=== PATIENT | male | born 1975 | race Caucasian/White ===

== ENCOUNTER → 2019-02-08 14:09 | Outpatient (CLI) | payer OTHER, SELFPAY ==
--- NOTE | 2019-02-08 14:16 | XR_ITS ---
XR tibia fibula LT 2V Ordering Physician: Guillermo Ackerman Patient Age: 43 years: Male HISTORY: ITS.REASON: pain in calf Injury the tibia-fibula yesterday. Pain posterior TECHNIQUE: AP and lateral lower leg COMPARISON :Left knee 2011 FINDINGS The tibia and fibula are intact with no fracture evident. The bones are well mineralized normal density. . There appears to be some focal soft tissue swelling, focally at the medial posterior calf with bulges medially on frontal projection.. Is This site of injury, pain or evident hematoma? IMPRESSION: Tibia and fibula are intact no fracture Focal soft tissue swelling at the posterior medial aspect of the calf. Reflecting recent injury with possible focal hematoma here.. Clinical correlation required
== END ==
PROVIDERS: PCP Emergency Medicine; Visit Provider Nurse Practitioner Family
DX: M79.662 Pain in left lower leg (principal)
CPT/HCPCS: 73590

== ENCOUNTER 2019-02-15 09:00 | Outpatient (RCR) | payer OTHER, SELFPAY ==
--- NOTE | 2019-02-13 09:05 | HMH.PTOPEV ---
PT Outpatient Evaluation Rehab PT Outpatient Evaluation Start: 02/13/19 08:13 Freq: Status: Active Protocol: Document 02/13/19 08:47 PHOSHAW (Rec: 02/13/19 09:02 PHORNE [email or web address]) Electronically Signed By Abner Aburto, PT 02/13/19 08:47 Outpatient Therapy Subjective History Subjective History Pt is a 43 yowm with complaints of L calf pain after attempting to climb a wall at a trampoline park 1 week ago. The next day, pt visited Dr. Baxter who refered to PT. Pt presents with bruising and swelling around the posterior middle calf. Pt reports 4/10 pain with PF at this moment, 3/10 at best, and 10/10 at worst. Pt reports avoiding any type of PF to decrease pain. Pt denies numbness and tingling into the LLE. Pt states pain is sharp and is in the mid calf. Pt states having asthma and no other comorbidities. Pt 's past surgeries include L knee surgery. Chief Complaint Pain Swelling Symptom Type Sharp Symptoms Relieved By Ice Symptoms Aggravated By Physical Activity Walking Prior Functional Limitations None Current Functional Limitations Walking Stairs Balance Symptom Description Constant but Variable Level of pain today (0-10) 4 Pain scale - at its best (0-10) 3 Pain scale - at its worst (0-10) 10 Hip/Knee Eval MMT left Hip Strength Reason Not Measured WFL Knee Extension Strength Grade 5 Normal Knee Flexion Strength Grade 4 Good Sensation bilateral LE Dermatome Level L3 L4 L5 S1 Comment Normal sensation Ankle/Foot Eval Gait Observation General Gait Pattern Observation Antalgic Gait Decrease Weight Bear (L) Assistive Device Ambulation Assistive Device None Palpation Tenderness left Ankle/Foot Palpation Findings Tenderness Ankle/Foot Palpation Overall Comment L posterior medial calf ROM right Ankle/Foot Dorsiflexion w/Knee Flexed 29 Active Range of Motion (degrees) Ankle/
== END 2019-02-15 09:05 | disposition home or self-care (01) ==
LOC: PT 09:00
PROVIDERS: Visit Provider Orthopaedic Surgery
DX: S86.112A Strain of other muscle(s) and tendon(s) of posterior muscle group at lower leg level, left leg, initial encounter (principal)
CPT/HCPCS: 97010; 97110; 97163

== ENCOUNTER 2019-10-17 16:27 | Observation (INO) ==
--- NOTE | 2019-10-17 17:20 | History & Physical Report ---
*Admission Date: 10/17/19 *Chief complaint: chest pain *History of present illness: 43-year-old male presents to primary care with complaints of chest pain since last p.m. that was intermediate but since this a.m. he has had sharp stabbing left-sided chest pain. Discussed with Dr. Fuller admitted for cardiac work-up due to family history of coronary artery disease, and SD as an early age. Father had first SD with stenting done at age 46. 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, MRSA *Have you ever received a pneumonia vaccine?: No *Have you received a flu vaccine this season?: No Laterality Cases: - *Social History Smoking Status: Never smoker Alcohol Intake: never *Occupational Status:: employed Housing: house Household Members: family *Travel in the last 8 weeks: None Family Hx:: Cancer, Hypertension, Diabetes, Asthma Review of Systems - Review of Systems Review of systems:: pertinent systems reviewed and negative unless documented below - Constitutional Denies body ache(s), Denies fatigue - Eyes Denies blurry vision - ENT Denies bleeding gums, Denies nasal discharge - *Cardiovascular Reports chest pain, Reports chest pain at rest, Reports chest pain with activity, Denies leg sores - *Respiratory Denies chest congestion, Denies cough, Denies shortness of breath with activity - *Gastrointestinal Denies nausea, Denies vomiting - *Genitourinary Denies urinary frequency - *Musculoskeletal Denies decreased muscle mass - Integumentary/Breasts Denies rash - *Neurologic Denies abnormal hearing - Psychiatric Denies lack of enjoyment, Denies anxiety - Endocrine Denies flushing - Hematologic/Lymphatic Denies enlarged lymph nodes - Allergic/Immunologic Denies itchy eyes Meds Home Medications Medication Instructions Recorded Confirmed Type amoxicillin 500 mg capsule 500 mg PO Q12H 10 Days #20 cap 03/13/19 03/13/19 Rx azithromycin 250 mg tablet 250 mg PO QDAY 5 Days #6 tab 03/14/19 Rx Allergies Allergy/AdvReac Type Severity Reaction Status Date / Time From BACTRIM Allergy Unknown HANDS RED Uncoded 03/13/19 12:14 AND SWOLLEN AND RASH Exam Vital signs and Labs for Last 24 Hours: Temp Pulse Resp BP Pulse Ox 97.9 F 58 L 18 122/82 99 10/17/19 16:47 10/17/19 16:47 10/17/19 16:47 10/17/19 16:47 10/17/19 16:47 I & O for Last 24 hours: Intake & Output 10/15/19 10/16/19 10/17/19 10/18/19 11:59 11:59 11:59 11:59 Weight 158 lb 2 oz - Constitutional no acute distress - *Routine HEENT Exam Head: Present: normocephalic Eye: Present: PERRL ENT: Present: mucous membranes moist - *Routine Neck Exam Present: supple, full ROM. Absent: lymphadenopathy - *Routine Respiratory Exam Present: CTA bilaterally - *Routine Cardiovascular Exam Present: RRR, bradycardia - *Routine Abdominal Exam Present: soft, normoactive bowel sounds - *Routine Extremities Exam Present: full ROM, normal capillary refill. Absent: cyanosis, clubbing, edema - *Routine Skin Exam Present: warm. Absent: rash - *Routine Neurological Exam Present: alert, oriented X3 - Routine Psychiatric Exam Present: normal affect Assessment and Plan (1) Chest pain Current visit: Yes Status: Acute Qualifiers: Chest pain type: other chest pain Qualified Code(s): R07.89 - Other chest pain; R07.8 - Other chest pain Category: Medical Code(s): R07.9 - Chest pain, unspecified - Assessment and plan all Dx Assessment and Plan for all problems:: Dr nuno seen pt all orders per nurys
[2019-10-17 17:22] LABS: Basophils % 0.5 % (0.1-2.0); Eosinophils # 0.4 K/mm3 (0.0-0.4); Eosinophils % 4.5 % (0.1-12.0); Hematocrit 42.8 % (42.0-52.0); Lymphocytes # 2.1 K/mm3 (0.7-4.5); Lymphocytes % 27.3 % (10-50); Mean Corpuscular HGB Conc 32.7 g/dL (31.8-35.4); Mean Corpuscular Volume 90.5 fl (80-94); Mean Platelet Volume 7.6 fl (7.4-10.4); Monocytes # 0.5 K/mm3 (0.1-1.0); Monocytes % 6.8 % (1.7-9.3); Neutrophils # 4.7 K/mm3 (1.8-7.8); Neutrophils % 60.9 % (37.0-80.0); Platelet Count 293 K/mm3 (142-424); Red Blood Count 4.73 M/mm3 (4.60-6.20); Red Cell Distribution Width 12.7 % (11.5-17.5); White Blood Count 7.7 K/mm3 (4.8-10.8)
[2019-10-17 17:36] LABS: Albumin/Globulin Ratio 1.1 (1.1-1.8); Anion Gap 14.9 mEq/L (5-15); Bilirubin,Total 0.7 mg/dL (0.2-1.0); Calcium 8.8 mg/dL (8.5-10.1); Globulin 3.6 gm/dl (1.3-3.2); Total Protein,Serum 7.6 gm/dL (6.4-8.2)
[2019-10-18 06:14] LABS: Basophils % 0.4 % (0.1-2.0); Eosinophils # 0.3 K/mm3 (0.0-0.4); Eosinophils % 4.6 % (0.1-12.0); Hematocrit 40.4 % (42.0-52.0); Hemoglobin 13.3 g/dL (14.1-18.0); Lymphocytes # 2.1 K/mm3 (0.7-4.5); Lymphocytes % 35.6 % (10-50); Mean Corpuscular Volume 88.8 fl (80-94); Mean Platelet Volume 8.2 fl (7.4-10.4); Monocytes # 0.4 K/mm3 (0.1-1.0); Monocytes % 6.4 % (1.7-9.3); Neutrophils # 3.1 K/mm3 (1.8-7.8); Platelet Count 262 K/mm3 (142-424); Red Blood Count 4.54 M/mm3 (4.60-6.20); Red Cell Distribution Width 12.9 % (11.5-17.5); White Blood Count 5.8 K/mm3 (4.8-10.8)
[2019-10-18 06:24] LABS: Albumin Level 3.4 gm/dL (3.4-5.0); Albumin/Globulin Ratio 1.1 (1.1-1.8); Anion Gap 11.8 mEq/L (5-15); Bilirubin,Total 0.9 mg/dL (0.2-1.0); Calcium 8.4 mg/dL (8.5-10.1); Chol/HDL Ratio 2.6 (1-3.5); Globulin 3.2 gm/dl (1.3-3.2); Total Protein,Serum 6.6 gm/dL (6.4-8.2)
--- NOTE | 2019-10-18 07:47 | Pharmacy Consult Notes ---
[facility] Pharmacy VTE Monitoring - Patient Demographics Admission date: 10/17/19 Report Date: 10/18/19 Time: 07:47 Allergies/Adverse Reactions: Patient Allergies sulfamethoxazole [From Bactrim] Allergy (Verified 10/18/19 07:47) HANDS RED AND SWOLLEN AND RASH trimethoprim [From Bactrim] Allergy (Verified 10/18/19 07:47) HANDS RED AND SWOLLEN AND RASH Height: 1.6 m Weight: 70.08 kg Patient Problems: Current Active Problems Chest pain (Acute) - VTE Risk Labs: VTE Related Lab Results Hgb 13.3 g/dL (14.1-18.0) L 10/18/19 05:29 Hct 40.4 % (42.0-52.0) L 10/18/19 05:29 Plt Count 262 K/mm3 (142-424) 10/18/19 05:29 BUN 19 mg/dL (7-18) H 10/18/19 05:29 Creatinine 0.99 mg/dL (0.70-1.30) 10/18/19 05:29 Estimated Creat Clear 95 mL/min (50-200) 10/18/19 05:29 VTE Score: 3 VTE Risk Level: Low Risk - Prophylaxis VTE Prophylaxis Ordered?: Yes Types of VTE Prophylaxis: TEDS Knee High Location of Applied Device: Bilateral Lower Extremeties - VTE Diagnosis Confirmed Treatment or plan recommended: Continue Current Treatment
--- NOTE | 2019-10-18 08:54 | Consult Report ---
History of Present Illness Consult date: 10/18/19 Requesting physician: Levon Geller Consult reason: chest pain Chief complaint: chest pain Additional Medical History:: 1. Family history of coronary artery disease 2. History of asthma History of present illness: 43-year-old white male admitted for recurrent episodes of chest pain, left-sided with radiation into the left arm. Patient stated symptoms would come with exertion or with at rest. Blood pressure and heart rate were low which prohibited beta-ramonita therapy. Due to recurrent episodes of chest pain patient did undergo cardiac catheterization last evening which revealed normal coronary arteries and normal left ventricular ejection fraction. His troponins did return to normal overnight. No acute EKG changes were noted. 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, MRSA Denies:: Diabetes Mellitus Type 1, Diabetes Mellitus Type 2 *Have you ever received a pneumonia vaccine?: No *Have you received a flu vaccine this season?: No Laterality Cases: Left: Other - *Social History Educational Level: Completed High School Smoking Status: Never smoker Alcohol Intake: never *Occupational Status:: employed Housing: house Household Members: spouse, family *Travel in the last 8 weeks: None Family Hx:: Asthma, Cancer, Diabetes, Heart Attack, Hypertension Meds Home Medications Medication Instructions Recorded Confirmed Type No Known Home Medications 10/17/19 10/17/19 History Allergies Allergy/AdvReac Type Severity Reaction Status Date / Time sulfamethoxazole Allergy HANDS RED Verified 10/18/19 07:47 [From Bactrim] AND SWOLLEN AND RASH trimethoprim [From Bactrim] Allergy HANDS RED Verified 10/18/19 07:47 AND SWOLLEN AND RASH Review of Systems - Review of Systems Review of systems:: pertinent systems reviewed and negative unless documented below - *Cardiovascular Reports chest pain - *Respiratory Denies shortness of breath - *Gastrointestinal Denies loose stools, Denies nausea, Denies vomiting - *Genitourinary Denies blood in urine - *Musculoskeletal Denies joint pain, Denies back pain - *Neurologic Denies abnormal hearing Exam Vital signs and Labs for Last 24 Hours: Temp Pulse Resp BP Pulse Ox 97.8 F 51 L 16 111/67 99 10/18/19 07:53 10/18/19 07:53 10/18/19 07:53 10/18/19 07:53 10/18/19 07:53 Laboratory Results - last 24 hr 10/17/19 17:00: WBC 7.7, RBC 4.73, Hgb 14.0 L, Hct 42.8, MCV 90.5, MCH 29.6, MCHC 32.7, RDW 12.7, Plt Count 293, MPV 7.6, Neut % (Auto) 60.9, Lymph % (Auto) 27.3, [place] % (Auto) 6.8, Eos % (Auto) 4.5, Baso % (Auto) 0.5, Neut # (Auto) 4.7, Lymph # (Auto) 2.1, [place] # (Auto) 0.5, Eos # (Auto) 0.4, Baso # (Auto) 0.0 10/17/19 17:00: Sodium 142, Potassium 3.9, Chloride 104, Carbon Dioxide 27, Anion Gap 14.9, BUN 17, Creatinine 1.03, Estimated Creat Clear 134, Estimated GFR 79, Est GFR ( Amer) 95, Glucose 91, Calcium 8.8, Total Bilirubin 0.7, AST 18, ALT 16, Alkaline Phosphatase 64, Total Protein 7.6, Albumin 4.0, Globulin 3.6 H, Albumin/Globulin Ratio 1.1 10/17/19 17:00: Troponin I < 0.02 10/17/19 20:33: Troponin I < 0.02 10/17/19 23:18: Troponin I < 0.02 10/18/19 05:29: WBC 5.8, RBC 4.54 L, Hgb 13.3 L, Hct 40.4 L, MCV 88.8, MCH 29.3, MCHC 33.0, RDW 12.9, Plt Count 262, MPV 8.2, Neut % (Auto) 53.0, Lymph % (Auto) 35.6, [place] % (Auto) 6.4, Eos % (Auto) 4.6, Baso % (Auto) 0.4, Neut # (Auto) 3.1, Lymph # (Auto) 2.1, [place] # (Auto) 0.4, Eos # (Auto) 0.3, Baso # (Auto) 0.0 10/18/19 05:29: Sodium 141, Potassium 3.8, Chloride 106, Carbon Dioxide 27, Anion Gap 11.8, BUN 19 H, Creatinine 0.99, Estimated Creat Clear 95, Estimated GFR 83, Est GFR ( Amer) 100, Glucose 88, Calcium 8.4 L, Total Bilirubin 0.9, AST 10 L D, ALT 13, Alkaline Phosphatase 50, Total Protein 6.6, Albumin 3.4 D, Globulin 3.2, Albumin/Globulin Ratio 1.1, Triglycerides 42, Cholesterol 145, LDL Cholesterol 81, VLDL Cholesterol 8, HDL Cholesterol 56, Cholesterol/HDL Ra lux 2.6 I & O for Last 24 hours: Intake & Output 10/15/19 10/16/19 10/17/19 10/18/19 11:59 11:59 11:59 11:59 Intake Total 370 / 370 Balance 370 / 370 Weight 154 lb 8 oz - *Routine HEENT Exam Head: Present: normocephalic Eye: Present: EOMI, PERRL ENT: Present: mucous membranes moist - *Routine Neck Exam Present: supple. Absent: JVD, carotid bruit - *Routine Respiratory Exam Present: CTA bilaterally. Absent: accessory muscle use, rales, rhonchi, wheezes - *Routine Cardiovascular Exam Present: RRR. Absent: murmur, gallop, rubs - *Routine Abdominal Exam Present: soft. Absent: tenderness, distended, guarding - *Routine Extremities Exam Absent: edema, calf tenderness - *Routine Neurological Exam Present: alert, oriented X3, moving all extremities Assessment and Plan (1) Chest pain Current visit: Yes Status: Acute Qualifiers: Chest pain type: other chest pain Qualified Code(s): R07.89 - Other chest pain; R07.8 - Other chest pain Category: Medical Code(s): R07.9 - Chest pain, unspecified - Assessment and plan all Dx Assessment and Plan for all problems:: 1. Normal coronary arteries by cardiac catheterization. 2. Noncardiac chest pain, work-up per Dr. Geller. 3. Okay for discharge home from cardiology standpoint.
--- NOTE | 2019-10-18 09:06 | Discharge Summary ---
General - General Admission date:: 10/17/19 Discharge date: 10/18/19 HPI HPI: 43-year-old male presents to primary care with complaints of chest pain since last p.m. that was intermediate but since this a.m. he has had sharp stabbing left-sided chest pain. Discussed with Dr. Fuller admitted for cardiac work-up due to family history of coronary artery disease, and CT as an early age. Father had first CT with stenting done at age 46. Hospital Course Hospital Course: heart cath:ANGIOGRAPHIC RESULTS The left main artery Normal The left anterior descending artery Normal The circumflex artery Normal The right coronary artery Dominant normal The KIM[place]OUGH ventriculogram reveals Normal 65% The left ventricular end-diastolic pressure 10 mmHg IMPRESSION Normal coronary arteries Normal ejection fraction Normal left ventricular end-diastolic pressure PLAN 1. Evaluation of noncardiac chest pain pt will be dc home and follow up in office in 1 week. If chest pain return will evaluate possible gi causes. Objective Vital signs: Temp Pulse Resp BP Pulse Ox 97.8 F 51 L 16 111/67 99 10/18/19 07:53 10/18/19 07:53 10/18/19 07:53 10/18/19 07:53 10/18/19 07:53 no acute distress - *Routine HEENT Exam Head: Present: normocephalic Eye: Present: PERRL ENT: Present: mucous membranes moist - *Routine Respiratory Exam Present: CTA bilaterally - *Routine Cardiovascular Exam Present: RRR - *Routine Abdominal Exam Present: soft, normoactive bowel sounds - *Routine Extremities Exam Present: full ROM - *Routine Skin Exam Present: intact - *Routine Neurological Exam Present: alert, oriented X3 - Routine Psychiatric Exam Present: normal affect Results Labs on day of discharge: Labs from last 24 hours 10/18/19 10/18/19 10/17/19 05:29 05:29 23:18 WBC 5.8 RBC 4.54 L Hgb 13.3 L Hct 40.4 L MCV 88.8 MCH 29.3 MCHC 33.0 RDW 12.9 Plt Count 262 MPV 8.2 Neut % (Auto) 53.0 Lymph % (Auto) 35.6 [place] % (Auto) 6.4 Eos % (Auto) 4.6 Baso % (Auto) 0.4 Neut # (Auto) 3.1 Lymph # (Auto) 2.1 [place] # (Auto) 0.4 Eos # (Auto) 0.3 Baso # (Auto) 0.0 Sodium 141 Potassium 3.8 Chloride 106 Carbon Dioxide 27 Anion Gap 11.8 BUN 19 H Creatinine 0.99 Estimated Creat Clear 95 Estimated GFR 83 Est GFR ( Amer) 100 Glucose 88 Calcium 8.4 L Total Bilirubin 0.9 AST 10 L D ALT 13 Alkaline Phosphatase 50 Troponin I < 0.02 Total Protein 6.6 Albumin 3.4 D Globulin 3.2 Albumin/Globulin Ratio 1.1 Triglycerides 42 Cholesterol 145 LDL Cholesterol 81 VLDL Cholesterol 8 HDL Cholesterol 56 Cholesterol/HDL Ratio 2.6 10/17/19 10/17/19 10/17/19 20:33 17:00 17:00 WBC RBC Hgb Hct MCV MCH MCHC RDW Plt Count MPV Neut % (Auto) Lymph % (Auto) [place] % (Auto) Eos % (Auto) Baso % (Auto) Neut # (Auto) Lymph # (Auto) [place] # (Auto) Eos # (Auto) Baso # (Auto) Sodium 142 Potassium 3.9 Chloride 104 Carbon Dioxide 27 Anion Gap 14.9 BUN 17 Creatinine 1.03 Estimated Creat Clear 134 Estimated GFR 79 Est GFR ( Amer) 95 Glucose 91 Calcium 8.8 Total Bilirubin 0.7 AST 18 ALT 16 Alkaline Phosphatase 64 Troponin I < 0.02 < 0.02 Total Protein 7.6 Albumin 4.0 Globulin 3.6 H Albumin/Globulin Ratio 1.1 Triglycerides Cholesterol LDL Cholesterol VLDL Cholesterol HDL Cholesterol Cholesterol/HDL Ratio 10/17/19 17:00 WBC 7.7 RBC 4.73 Hgb 14.0 L Hct 42.8 MCV 90.5 MCH 29.6 MCHC 32.7 RDW 12.7 Plt Count 293 MPV 7.6 Neut % (Auto) 60.9 Lymph % (Auto) 27.3 [place] % (Auto) 6.8 Eos % (Auto) 4.5 Baso % (Auto) 0.5 Neut # (Auto) 4.7 Lymph # (Auto) 2.1 [place] # (Auto) 0.5 Eos # (Auto) 0.4 Baso # (Auto) 0.0 Sodium Potassium Chloride Carbon Dioxide Anion Gap BUN Creatinine Estimated Creat Clear Estimated GFR Est GFR ( Amer) Glucose Calcium Total Bilirubin AST ALT Alkaline Phosphatase Troponin I Total Protein Albumin Globulin Albumin/Globulin Ratio Triglycerides Cholesterol LDL Cholesterol VLDL Cholesterol HDL Cholesterol Cholesterol/HDL Ratio - Additional Comments Rounded with nurys all orders per dr nuno DS: Diagnosis - Discharge Diagnosis (1) Chest pain Status: Acute (2) Bradycardia Status: Acute Discharge Plan - Patient Discharge Instructions ACTIVITY: Continue current activity DIET: continue same diet Patient Instructions: Cardiac Catheterization, DI for Cardiac Catheterization, DI for Chest Pain - Follow up Plan Follow up with: Guillermo Ackerman APRN [Advanced Practice Nurse] - Disposition: Home, Self-Mcc Medications: Home Medications Medication Instructions Recorded Confirmed Type No Known Home Medications 10/17/19 10/17/19 History Omeprazole Magnesium [Prilosec Otc 20 mg PO DAILY 30 Days #30 tab 10/18/19 Rx 20mg Tab] Prescriptions/Medication Reconciliation: New Omeprazole Magnesium [Prilosec Otc 20mg Tab] 20 mg PO DAILY 30 Days #30 tab No Action No Known Home Medications - Problem Reconciliation Problems Reviewed?: Yes
--- NOTE | 2019-10-18 10:26 | Electrocardiograph Report ---
APPROVED REPORT Exam: Resting ECG HR:55 bpm ECG Measurements Heart Rate 55 AXES OR 134 P 59 QRSd 92 QRS 55 QT 424 T40 QTc 405 <Conclusion> Sinus bradycardia Otherwise normal ECG Electronically signed by : Zan Hennessy, 10/18/2019 10:25:51
--- OUTSIDE RECORDS SUMMARY | 2019-10-18 14:16 | External Medical Summary | Continuity of Care Document ---
:1975 Author Organization [facility] Address [address] [facility] [address] [place] [address] Phone Care Team Providers Name Role Phone Nell Geller Primary Care Provider Nell Geller Attending Provider Tyron Attending Provider Allergies, Adverse Reactions, Alerts Allergen Type Severity Reaction Last Verified Status Updated sulfamethoxazole Allergy HANDS RED Yes Act eliud AND SWOLLEN AND RASH trimethoprim Allergy HANDS RED Yes Active AND SWOLLEN AND RASH Medications Medication Status Dose Units Route Sig Qty Days Start End Instruct ions Date Date Omeprazole Active 20 MG Oral Daily October 9:07am Problems Active Problems Medical Problem Onset Date Status Bradycardia Active Chest pain Active Procedures Procedure Date Performed Status XR chest 2V October 17, 2019 completed ECG initial Besson October 17, 2019 completed Cardiac Cath October 17, 2019 7:35pm completed Relevant Diagnostic Tests and/or Laboratory Data Laboratory Results Test Date/Time Result Interpretation Reference Result Perfo rming Range Comment Site White Blood Count Niraj 5.8 4.8-10.8 [facility], [address] [place] [address] 36 E 2018 K/mm3 [place] [address] 5:29am Red Blood Count October 4.54 4.60-6.20 [facility], [address] [place] [address] 36 E 2018 M/mm3 [place] [address] 5:29am Hemoglobin Niraj 13.3 14.1-18.0 [facility], [address] [place] [address] 36 E 2018 g/dL [place] [address] 5:29am Hematocrit Niraj 40.4 % 42.0-52.0 [facility], [address] [place] [address] 36 E 2018 [place] [address] 5:29am Mean Corpuscular Niraj 88.8 fl 80-94 [facility], [address] [place] [address] E Volume 2018 [place] [address] 5:29am Mean Corpuscular Niraj 29.3 pg 27.0-31.2 [facility], [address] [place] [address] 36 E Hemoglobin 2018 [place] [address] 5:29am Mean Corpuscular Niraj 33.0 31.8-35.4 [facility], [address] [place] [address] 36 E Hemoglobin Concent 2018 g/dL [place] [address] 5:29am Red Cell Niraj 12.9 % 11.5-17.5 [facility], [address] [place] [address] 36 E Distribution Width 2018 [place] [address] 5:29am Platelet Count October 262 142-424 [facility], [address] [place] [address] 36 E 2018 K/mm3 [place] [address] 5:29am Mean Platelet October 8.2 fl 7.4-10.4 [facility], [address] [place] [address] 36 E Volume 2018 [place] [address] 5:29am Neutrophils (%) Niraj 53.0 % 37.0-80.0 [facility], [address] [place] [address] 36 E (Auto) 2018 [place] [address] 5:29am Lymphocytes (%) October 35.6 % 10-50 [facility], [address] [place] [address] 36 E (Auto) 2018 [place] [address] 5:29am Monocytes (%) Niraj 6.4 % 1.7-9.3 [facility], [address] [place] [address] E (Auto) 2018 [place] [address] 5:29am Eosinophils (%) October 4.6 % 0.1-12.0 [facility], [address] [place] [address] 36 E (Auto) 2018 [place] [address] 5:29am Basophils (%) Niraj 0.4 % 0.1-2.0 [facility], [address] [place] [address] E (Auto) 2018 [place] [address] 5:29am Neutrophils # October 3.1 1.8-7.8 [facility], [address] [place] [address] E (Auto) 2018 K/mm3 [place] [address] 5:29am Lymphocytes # October 2.1 0.7-4.5 [facility], [address] [place] [address] E (Auto) 2018 K/mm3 [place] [address] 5:29am Monocytes # (Auto) October 0.4 0.1-1.0 [facility], [address] [place] [address] 36 E 2018 K/mm3 [place] [address] 5:29am Eosinophils # Niraj 0.3 0.0-0.4 [facility], [address] [place] [address] E (Auto) 2018 K/mm3 [place] [address] 5:29am Basophils # (Auto) Niraj 0.0 0-0.2 [facility], [address] [place] [address] E 2018 K/mm3 [place] [address] 5:29am Troponin I October < 0.02 0.00-0.06 *ALERT* High [facility], [address] [place] [address] 36 E 2018 ng/[place] [address] 11:18pm Biotin can falsely depress Troponin results.Many dietary supplements promoted for hair,skin, and nail benefits contain biotin levels up to 650 times the recommended daily intake of biotin. In additon to dietary supplements, Biotin is occasionally prescribed for medical conditions. Sodium Level October 141 136-145 [facility], [address] [place] [address] 36 E 2018 mmol/[place] [address] 5:29am Potassium Level October 3.8 3.5-5.1 [facility], [address] [place] [address] 36 E 2018 mmoL/L [place] [address] 5:29am Chloride Level October 106 98-107 [facility], [address] [place] [address] E 2018 mmol/[place] [address] 5:29am Carbon Dioxide October 27 21.0-32.0 [facility], [address] [place] [address] E Level 2018 mmol/L [place] [address] 5:29am Anion Gap October 11.8 5-15 [facility], [address] [place] [address] E 2018 mEq/L [place] [address] 5:29am Blood Urea October 19 7-18 [facility], [address] [place] [address] E Nitrogen 2018 mg/dL [place] [address] 5:29am Creatinine October 0.99 0.70-1.30 [facility], [address] [place] [address] E 2018 mg/dL [place] [address] 5:29am Estimated Niraj 95 0-300 [facility], [address] [place] [address] E Creatinine 2018 mL/[place] [address] Clearance 5:29am Estimated GFR October 100 >59 [facility], [address] [place] [address] E () 2018 ML/[place] [address] 5:29am Estimat Glomerular October 83 >59 [facility], [address] [place] [address] E Filtration Rate 2018 ml/[place] [address] 5:29am Glucose Level October 88 74-106 [facility], [address] [place] [address] E 2018 mg/[place] [address] 5:29am Calcium Level October 8.4 8.5-10.1 [facility], [address] [place] [address] E 2018 mg/[place] [address] 5:29am Total Bilirubin October 0.9 0.2-1.0 [facility], [address] [place] [address] E 2018 mg/[place] [address] 5:29am Aspartate Amino Niraj 10 U/L 15-37 Delta: 18 on [facility], [address] [place] [address] E Transf (AST/SGOT) 201810/17/19-17 00 [place] [address] 5:29am Alanine October 13 U/L 12-78 [facility], [address] [place] [address] 36 E Aminotransferase 2018 [place] [address] (ALT/SGPT) 5:29am Total Protein October 6.6 6.4-8.2 [facility], [address] [place] [address] 36 E 2018 gm/[place] [address] 5:29am Albumin Niraj 3.4 3.4-5.0 Delta: 4.0 on [facility], [address] [place] [address] 36 E 2018 gm/dL 10/17/19-1700 [place] [address] 5:29am Globulin Niraj 3.2 1.3-3.2 [facility], [address] [place] [address] 36 E 2018 gm/[place] [address] 5:29am Albumin/Globulin October 1.1 1.1-1.8 [facility], [address] [place] [address] 36 E Ratio 2018 [place] [address] 5:29am Triglycerides Niraj 42 30-200 [facility], [address] [place] [address] 36 E Level 2018 mg/[place] [address] 5:29am Cholesterol Level October 145 140-200 [facility], [address] [place] [address] 36 E 2018 mg/[place] [address] 5:29am LDL Cholesterol October 81 0-130 [facility], [address] [place] [address] 36 E 2018 mg/[place] [address] 5:29am VLDL Cholesterol Niraj 8 mg/dL 0-40 [facility], [address] [place] [address] 36 E 2018 [place] [address] 5:29am HDL Cholesterol Niraj 56 27-67 [facility], [address] [place] [address] 36 E 2018 mg/[place] [address] 5:29am Cholesterol/HDL October 2.6 1-3.5 [facility], [address] [place] [address] 36 E Ratio 2018 [place] [address] 5:29am Alkaline Niraj 50 U/L 46-116 [facility], [address] [place] [address] 36 E Phosphatase 2018 [place] [address] 5:29am Diagnostic Imaging Reports Report Dictated Date/Time Dictated By Status Radiology Report October 17, 2019 Prasad [place] MD completed 5:57pm [address] [place] [address] XRay R eport Sig yogesh Patient: Bogdan Velazco MR#: [id number] : 1975 Acct:[id number] Age/Sex: 43 / M ADM Date: 9 Loc: 2ND 215- Attending Dr: Levon Geller MD Ordering Physician: Guillermo Ackerman APRN Date of Service: 10/17/19 Procedure(s): XR chest 2V Accession Number(s): [id number] cc: Prasad [place] MD; Levon Geller MD~ PROCEDURE: XR CHEST 2V CLINICAL HISTORY: chest pain COMPARISON: CXR CHEST(2 VIEWS-NOT PORT ABLE) from 04/02/2013 FINDINGS: The cardiomediastinal silhouette and pu lmonary vascularity are within normal limits. The lungs are clear without infiltrates , suspicious nodules, or pleural effusions. No acute bony abnormalities. IMPRESSION: No acute findings. Dictated by: Prasad [place] MD 10/17/2019 18:50 Electronically signed by Prasad [place] in [place] 10/17/2019 18:50 Interventional Radiology October 17, 2019 Dread Fuller , completed Report 7:59pm [address] [place] [address] Interventional Radiology Rpt Sig yogesh Patient: Bogdan Velazco MR#: [id number] : 1975 Acct:[id number] Age/Sex: 43 / M ADM Date: 9 Loc: 215- Attending Dr: Levon Geller MD Ordering Physician: Dread Fullre MD Date of Service: 10/17/19 Procedure(s): CL lhc w ventricle Accession Number(s): [id number] cc: Levon Geller MD; Hortensia Fuller MD~ APPROVED REPORT -------- ------ Patient Location: Outpatient [employer] 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 COMPLICATIONS None Estimated Blood Loss: less than 10ml TECHNIQUE One percent lidocaine used to anestheti ze the right anterior aspect of the wrist. The right radial artery w as accessed via the Seldinger technique. A [address] d in the right radial artery. 2.5 mg of verapamil, 800 mcg of nitrogl ycerin, 1mg Lidocaine and 5000 U Heparin were given through the arteri al sheath. The trap catheter was also used to perform left heart cat heterization, left ventriculogram and selective coronary a ngiogram. At the end of the procedure the sheath was removed good h emostasis was achieved using Traclet band, patient was transferred t o the postop holding area in stable condition. ANGIOGRAPHIC RESULTS The left main artery Normal The left anterior descending artery Nor mal The circumflex artery Normal The right coronary artery Dominant norm al The KIMBROUGH ventriculogram reveals Normal 6 5% The left ventricular end-diastolic pres sure 10 mmHg IMPRESSION Normal coronary arteries Normal ejection fraction Normal left ventricular end-diastolic p ressure PLAN 1. Evaluation of noncardiac chest pain Electronically signed by : Dread patrick, 10/17/2019 19:55:22 Health Concerns Concerns Recurrent indigestion or chest pain. Advance Directives Advance Directive Response Recorded Date/Time Living Will No October 17, 2019 5:14pm Chief Complaint and Reason for Visit Chief Complaint Chest pain Chest pain Reason for Visit Bradycardia Chest pain Encounters Encounter Location(s) Arrival/Admit Date Discharge/Depart Date Provider(s) Discharged [facility] Physician October 17October 18, 2019 Eleazar Camejo Inpatient Group-Second 2018 4:27pm 10:52am MD Duyne Floor Departed [facility] Physician October 17October 17, 2019 Mason Graf Physician/Provi Group-Primary 2018 4:49pm 4:50pm , DIRECTOR OF ENTERPRISE APPLICATIONS miguel angel Office Care-Duyen Visit Registered [facility] Physician October 18 Levon Camejo Inpatient Group- 2018 2:07pm MD Duyen Recent Diagnosis Onset Date Bradycardia Chest pain Assessments See care plan goals Functional Status Observation Response Date Recorded Oral Care Ability Independent October 17, 2019 5:14pm Bathing Ability Independent October 17, 2019 7:35pm Eating (Feeding) Ability Independent October 17, 2019 5:14pm Toileting Ability Independent October 17, 2019 5:14pm Ambulation Ability Independent October 18, 2019 10:45am Goals Acute Goals Nursing Diagnosis: Knowledge Deficit D isease/Condition Goal(s): Education of di sease process Instruction(s): Follow provider p ginger/instructions (See attached discharge education) Follow/up with primary care provider as instructed in discharge packet Ambulatory Goals Patient/Family will verbalize understand ing of disease process and healthy behaviors. Patient/Family will follow pl an of care. Mental Status Observation Response Date Recorded Comprehension Ability No Impairment October 18 9:00am Able to Read Yes October 17, 2019 5:14pm Able to Write Yes October 17, 2019 5:14pm Eye Contact No Eye Contact October 17, 2019 5:14pm Oral Expression Ability No Impairment October 17 5:14pm Medical Equipment No Medical Equipment Information available Insurance Providers Guarantor Bogdan Velazco Address [address] [place] [phone] Contact Info. Home Phone: Payer Policy Id Coverage Id Subscriber's Subscriber Id Effective E xpiration Name Date Date [place] [id number] Blue Card Program Out Self Pay Self N/A [place] [id number] [facility] Plan of Treatment Follow up as ordered by primary care provider Future Tests Future scheduled test information is unavailable Pending Tests Pending diagnostic test information is unavailable Future Visits Future appointment information is unavailable Referrals to Other Providers Reason for Referral Start Provider Provider Contact Provider Address Referral Date Information Admission to [facility] October 182018 [facility] Dread Fuller Work Phone: [phone] [place] [address] Future Procedures Future procedure information is unavailable Future Medications Future medication information is unavailable Patient Instructions Cardiac Catheterization DI for Cardiac Catheterization DI for Surgical Site Infection DI for Chest Pain Social History Assigned Sex Male Vital Signs Vital Reading Result Reference Range Collection Date/ Time Height 160.02 cm October 18 5:10am Weight 70.08 kg October 18 5:10am Body Temperature 97.8 [degF] 97.6-99.6 October 18, 2019 7:53am Heart Rate 51 /min 60-90 October 18, 019 7:53am Respiratory rate 16 /min -October 18, 2019 7:53am Oxygen saturation by 99 % 95-100 October 182018 Pulse oximetry 7:53am BP Systolic 111 mm[Hg] 110-140 October 18, 2 019 7:53am BP Diastolic 67 mm[Hg] 60-90 October 18, 2 019 7:53am BMI (Body Mass Index) 27.3 kg/m2 October 072018 5:10am
== END 2019-10-18 10:52 | disposition home or self-care (01) ==
LOC: 2ND
PROVIDERS: ADMIT Emergency Medicine; ATTEND Emergency Medicine
CPT/HCPCS: 36415; 71020; 71046; 80053; 80061; 84484; 85025; 93005; 93458; 99152; C1725; C1769; G0378; J1644; Q9967

== ENCOUNTER → 2019-11-02 09:11 | Outpatient (CLI) | payer BC, SELFPAY ==
--- NOTE | 2019-11-02 09:22 | CT_ITS ---
PROCEDURE: CT ABDOMEN W CON CLINICAL HISTORY: ABD PAIN COMPARISON: No exams were available for comparison TECHNIQUE: Axial images obtained with sagittal and coronal reformats. All CT scans at the facility use one or more dose reduction, viz: automated exposure control, ma/kV adjustment per patient size (including targeted exams where dose is matched to indication, i.e. head), or iterative reconstruction technique. FINDINGS: Lower lung fernandez are clear. Liver, gallbladder, pancreas, spleen and adrenal glands are normal. Kidneys are normal. There is no aortic dilatation. GI track is unremarkable. There is no acute osseous process. IMPRESSION: No acute process. Normal study. Dictated by: Ancelmo Curry 11/02/2019 14:36 Electronically signed by Ancelmo Curry in [facility] 11/02/2019 14:36
--- NOTE | 2019-11-02 09:22 | CT_ITS ---
PROCEDURE: CT CHEST W CON CLINICAL HISTORY: CHEST PAIN COMPARISON: No exams were available for comparison TECHNIQUE: Axial images obtained with sagittal and coronal reformats. All CT scans at the facility use one or more dose reduction, viz: automated exposure control, ma/kV adjustment per patient size (including targeted exams where dose is matched to indication, i.e. head), or iterative reconstruction technique. FINDINGS: Airway structures are patent and there is no pleural effusion or pneumothorax. Lungs are clear. Heart, thoracic aorta, mediastinal and hilar structures are normal. Visualized upper abdominal structures are unremarkable. IMPRESSION: No acute abnormality. Normal exam. Dictated by: Ancelmo Curry 11/02/2019 14:32 Electronically signed by Ancelmo Curry in [facility] 11/02/2019 14:32
== END ==
PROVIDERS: PCP Emergency Medicine; Visit Provider Internal Medicine Gastroenterology
DX: R07.89 Other chest pain (principal); R10.9 Unspecified abdominal pain
CPT/HCPCS: 71260; 74160; Q9967

== ENCOUNTER → 2020-11-13 09:01 | Outpatient (CLI) | payer BC, SELFPAY | PROVIDERS: PCP Nurse Practitioner Family; Visit Provider Nurse Practitioner Family | DX: Z03.818 Encounter for observation for suspected exposure to other biological agents ruled out (principal) | CPT/HCPCS: U0003 ==

== ENCOUNTER → 2020-11-19 10:26 | Outpatient (CLI) | payer BC, SELFPAY ==
[2020-11-20 11:38] LABS: Covid-19 Nasal PCR Sendout P&C NEGATIVE
== END ==
PROVIDERS: PCP Emergency Medicine; Visit Provider Nurse Practitioner Family
DX: Z11.52 Encounter for screening for COVID-19 (principal)
CPT/HCPCS: U0004

== ENCOUNTER → 2020-11-25 08:53 | Outpatient (CLI) | payer BC, SELFPAY ==
[2020-11-26 08:42] LABS: Covid-19 Nasal PCR Sendout P&C NEGATIVE
== END ==
PROVIDERS: PCP Emergency Medicine; Visit Provider Nurse Practitioner Family
DX: Z20.822 Contact with and (suspected) exposure to COVID-19 (principal)
CPT/HCPCS: U0004

== ENCOUNTER → 2021-02-25 12:34 | Outpatient (CLI) | payer BC, SELFPAY | PROVIDERS: PCP Nurse Practitioner Family; Visit Provider Nurse Practitioner Family | DX: Z20.822 Contact with and (suspected) exposure to COVID-19 (principal) | CPT/HCPCS: U0003 ==

== ENCOUNTER → 2021-10-21 08:55 | Outpatient (CLI) | payer BC, SELFPAY | PROVIDERS: PCP Nurse Practitioner Family; Visit Provider Nurse Practitioner | DX: Z20.822 Contact with and (suspected) exposure to COVID-19 (principal) | CPT/HCPCS: C9803; U0003; U0005 ==

== ENCOUNTER → 2021-11-08 10:21 | Outpatient (CLI) | payer BC, SELFPAY | PROVIDERS: PCP Nurse Practitioner Family; Visit Provider Nurse Practitioner Family | DX: U07.1 COVID-19 (principal) | CPT/HCPCS: C9803; U0003; U0005 ==

== ENCOUNTER → 2021-12-04 09:06 | Outpatient (CLI) | payer BC, SELFPAY ==
[2021-12-05 15:21] LABS: Covid-19 Nasal PCR Sendout Lex NOT DETECTED
== END ==
PROVIDERS: Visit Provider Nurse Practitioner
DX: Z20.822 Contact with and (suspected) exposure to COVID-19 (principal)
CPT/HCPCS: C9803; U0004; U0005

== ENCOUNTER → 2021-12-29 15:20 | Outpatient (CLI) | payer BC, SELFPAY ==
--- NOTE | 2021-12-29 15:27 | XR_ITS ---
FINAL REPORT CLINICAL HISTORY: Left Foot trauma FINDINGS: LEFT FOOT Three views of the left foot demonstrate no acute fracture or dislocation. The visualized joint spaces are normally aligned. The soft tissues are unremarkable. IMPRESSION: No acute bony abnormality. Reviewed, Interpreted and Dictated by Kwadwo Aguilar MD Transcribed by John Almanzar Authenticated by Kwadwo Aguilar MD on 12/29/2021 04:17:54 PM [facility]
== END ==
PROVIDERS: PCP Nurse Practitioner Family; Visit Provider Nurse Practitioner Family
DX: M79.672 Pain in left foot (principal); S92.902A Unspecified fracture of left foot, initial encounter for closed fracture
CPT/HCPCS: 73620

== ENCOUNTER → 2022-02-09 13:37 | Outpatient (CLI) | payer BC, OTHER, SELFPAY ==
--- NOTE | 2022-02-09 13:43 | XR_ITS ---
FINAL REPORT CLINICAL HISTORY: Rt lateral ankle pain FINDINGS: RIGHT ANKLE: Three views of the right ankle were obtained. There is no acute fracture or dislocation. The joint spaces and mortise are intact. There is no soft tissue abnormality. IMPRESSION: No acute process. Reviewed, Interpreted and Dictated by Gold Osborne III, MD Transcribed by John Almanzar Authenticated by Gold Osborne III, MD on 02/09/2022 03:03:02 PM [facility]
--- NOTE | 2022-02-09 13:43 | XR_ITS ---
FINAL REPORT CLINICAL HISTORY: Rt lateral foot pain FINDINGS: RIGHT FOOT: Three views of the right foot were obtained. There is no acute fracture or dislocation. The joint spaces are intact. There is no soft tissue abnormality. IMPRESSION: No acute bony abnormality. Reviewed, Interpreted and Dictated by Gold Osborne III, MD Transcribed by John Almanzar Authenticated by Gold Osborne III, MD on 02/09/2022 03:04:27 PM [facility]
== END ==
PROVIDERS: PCP Nurse Practitioner Family; Visit Provider Nurse Practitioner Family
DX: M25.571 Pain in right ankle and joints of right foot (principal); M79.671 Pain in right foot
CPT/HCPCS: 73610; 73630

== ENCOUNTER → 2022-02-23 07:28 | Outpatient (CLI) | payer BC, OTHER, SELFPAY ==
--- NOTE | 2022-02-23 07:29 | MR_ITS ---
FINAL REPORT CLINICAL HISTORY: pain. LATERAL SIDED ANKLE PAIN AND SWELLING. TWISTED ANKLE X3WKS AGO. PAIN WITH BENDING AND EXTENDING. FINDINGS: Multiplanar MR imaging of the right ankle was performed without contrast. There is bone bruising/marrow edema in the distal inferior talus with a small nondisplaced fracture or osteochondral lesion. The ligaments are intact without evidence of injury. The flexor and extensor tendons are intact. The posterior plantar aponeurosis is intact. There are small subtalar and tibiotalar joint effusions. The musculature is intact. There is no evidence of soft tissue mass or cyst. IMPRESSION: Bone bruising/marrow edema in the distal inferior talus with a small nondisplaced fracture or osteochondral lesion. Small tibiotalar and subtalar joint effusions. Reviewed, Interpreted and Dictated by Gold Osborne III, MD Transcribed by John Almanzar Authenticated by Gold Osborne III, MD on 02/23/2022 10:10:39 AM [facility]
--- NOTE | 2022-02-23 07:31 | XR_ITS ---
FINAL REPORT CLINICAL HISTORY: R/O METAL FOREIGN BODY FOR MRI FINDINGS: ORBITS Look up and look down views were obtained. No fracture is identified. The sinuses are clear. Dental hardware is noted. No other foreign body is identified. IMPRESSION: No acute process. Reviewed, Interpreted and Dictated by Gold Osborne III, MD Transcribed by John Almanzar Authenticated by Gold Osborne III, MD on 02/23/2022 08:57:[address] [facility] [place]
== END ==
PROVIDERS: PCP Nurse Practitioner Family; Visit Provider Nurse Practitioner Family
DX: M79.671 Pain in right foot (principal)
CPT/HCPCS: 70200; 73721

== ENCOUNTER 2022-04-09 08:30 | Outpatient (RCR) | payer BC, SELFPAY ==
--- NOTE | 2022-03-29 13:48 | HMH.PTOPEV ---
PT Outpatient Evaluation Rehab PT Outpatient Evaluation Start: 03/29/22 12:47 Freq: Status: Active Protocol: Document 03/29/22 12:48 TOMMIE (Rec: 03/29/22 13:47 TOMMIE [id number]) Electronically Signed By Julianne Alfred, SHARON 03/29/22 12:48 Outpatient Therapy Subjective History Subjective History Pt is a 46 y/o male that reports onset of right foot pain/swelling after dropping a board on it a month and a half ago. Pt reports he played basketball a week later and twisted it with increased pain . Pt reports he had an xray and MRI at [facility] with results of a bone bruise and small nondisplaced fracture of the inferior talus; states no soft tissue or ligament injuries. Pt reports he was NWB in a boot with crutches for 4 weeks with removal last . Pt reports he is now FWB in a normal shoe without restrictions. Pt reports continued swelling since the initial injury and only sharp pain when stepping awkwardly or pushing through the foot. Pt reports he has been limiting activities such as farming due to increased swelling. 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: Asthma Chief Complaint Pain,Swelling Symptom Type Sharp Symptoms Relieved By Rest/Positioning,Brace/Support Symptoms Aggravated By Physical Activity,Twisting, Walking Prior Functional Limitations None Current Functional Limitations Recreation Activity,Walking, Balance Symptom Description Intermittent Level of pain today (0-10) 0 Pain scale - at its best (0-10) 0 Pain scale - at its worst (0-10) 6 Ankle/Foot Eval Gait Observation General Gait Pattern Observation Antalgic Gait,Decrease Weight Bear (R) Assistive Device Ambulation Assistive Device None Palpation Tenderness right Ankle/Foot Palpation Overall Comment No TTP noted of bony or soft tissue landmarks ROM left Ankle/Foot Dorsiflexion w/Knee Flexed 20 A
== END 2022-04-09 08:35 | disposition home or self-care (01) ==
LOC: PT 08:30
PROVIDERS: PCP Nurse Practitioner Family; Visit Provider Nurse Practitioner Family
DX: M25.571 Pain in right ankle and joints of right foot (principal)
CPT/HCPCS: 97163